=== PATIENT | male | born 1955 | race Caucasian/White ===

== ENCOUNTER → 2017-02-04 | Outpatient (CLI) | payer OTHER ==
--- NOTE | ~2017-02-04 | CR65 ---
[facility] A Service of [facility] RADIOLOGY TEXT RESULTS PATIENT: ROBBY CORTEZ LOCATION: [facility] : 59 UNIT #: [id number] AGE: [address]: Rima Hampton SEX: M ORDER DR: [id number] [facility] [address] [place], [place] [address] [id number] O MR#: [id number] Acc #: [id number] NAME: ROBBY CORTEZ : 1955 SEX: M STUDY DATE/TIME: 02/04/2017 10:15 UNIT: [facility] ROOM: STUDY DESCRIPTION: CR Chest 2 View W Fluoro Attending Physician: Rima Hampton A.P.R.N. Referring Physician: Rima Hampton A.P.R.N. Ordering Physician: Rima Hampton A.P.R.N. Primary Care Physician: Bang Zazueta M.D. MEDICAL IMAGING REPORT This report is preliminary unless electronic signature is present EXAM Sniff test. CLINICAL HISTORY Elevated right hemidiaphragm. COMPARISON Chest radiograph, 12/19/2016. PROCEDURE The study performed with 0.4 minutes of fluoroscopy. FINDINGS Initial chest radiograph reveals persistent mild elevation of the right hemidiaphragm. Dynamic sniff testing reveals normal symmetric simultaneous bilateral diaphragmatic excursion. IMPRESSION Normal sniff test. No evidence of diaphragmatic paralysis. Dictated by... Ebenezer Correa M.D. THIS IS AN ELECTRONICALLY VERIFIED REPORT Ebenezer Correa M.D. at 02/05/2017 2:56 PM LEO/cindy TD: 02/04/2017 23:37 JOB #: [id number] [facility] A Service [facility] RADIOLOGY TEXT RESULTS PATIENT: ROBBY CORTEZ LOCATION: [facility] : 59 UNIT #: [id number] AGE: [address]: Rima Hampton SEX: M ORDER DR: MEDICAL IMAGING REPORT Page 1 of 1 COPY
== END | disposition home or self-care (01) ==
LOC: CRAD 09:51
DX: J98.6 Disorders of diaphragm (principal)
CPT/HCPCS: 71023